=== PATIENT | female | born 1940 | race Caucasian/White ===

== ENCOUNTER 2016-11-20 14:15 | Inpatient (IN) | payer OTHER ==
[2016-11-20] MEDS ORDERED: TYLENOL PO PRN (16:10)
[2016-11-20] MEDS ORDERED: ZOFRAN IV PRN (16:10)
[2016-11-20] MEDS ORDERED: NS 1,000 ML IV SCH (16:15)
[2016-11-20] MEDS ORDERED: SODIUM CHLORIDE 0.9% INJ SCH (16:15)
[2016-11-20 16:48] LABS: BASO% 0.4 % (0.0-0.8); EOS# 0.02 X1000 (0.0-0.7); EOS% 0.2 % (0.0-10.0); HEMATOCRIT 43.5 % (37.0-47.0); HEMOGLOBIN 14.5 g/dL (12.0-16.0); IMM GRAN# 0.02 X1000 (0.0-0.04); IMM GRAN% 0.2 % (0.0-0.5); LYMPH# 0.77 X1000 (1.2-3.4); LYMPH% 7.7 % (20.5-51.1); MANUAL DIFF NEEDED? NO; MCH 29.7 PG (27-31); MCHC 33.3 g/dL (33-37); MPV 9.1 FL (7.4-10.4); NEUT% 88.5 % (42.2-75.2); PLT 188 X1000 (130-400); RBC 4.89 XMIL (4.2-5.4)
[2016-11-20 16:55] LABS: AGAP 10; ALBUMIN 4.2 g/dL (3.5-5.0); ALKALINE PHOSPHATASE 39 U/L (32-104); BUN 11 mg/dL (8-22); CALCIUM 8.2 mg/dL (8.8-10.2); CHLORIDE 100 mmol/L (98-107); COSMO 272; GOT 36 U/L (10-30); GPT 30 U/L (10-36); POTASSIUM 3.9 mmol/L (3.5-5.1); SODIUM 135 mmol/L (136-145); TCO2 25 mmol/L (25-35); TOTAL PROTEIN 6.8 g/dL (6.3-8.3)
[2016-11-20] MEDS ORDERED: PROTONIX IV SCH (17:00)
[2016-11-20 19:15] LABS: URINE CULTURE NEEDED? NO; URINE MICRO REVIEW NEEDED? NO; URINE SOURCE CATH
[2016-11-20 19:33] LABS: BILIRUBIN URINE NEGATIVE (NEGATIVE); BLOOD URINE NEGATIVE (NEGATIVE); COLOR YELLOW; GLUCOSE URINE NEGATIVE (NEGATIVE); LEUKOCYTES URINE NEGATIVE (NEGATIVE); NITRITE URINE NEGATIVE (NEGATIVE); PH URINE 6.5; PROTEIN URINE NEGATIVE (NEGATIVE); SP GRAVITY URINE 1.011; TURBIDITY URINE CLEAR (CLEAR); UROBILINOGEN URINE NORMAL (NORMAL)
[2016-11-20 19:37] LABS: UR EPITHELIAL CELLS <10 /HPF (<10); URINE BACTERIA NEGATIVE /HPF; URINE RBC <10 /HPF (<10); URINE WBC <10 /HPF (<10)
--- NOTE | 2016-11-20 19:44 | HISTORY AND PHYSICAL ---
PRIMARY CARE PROVIDER: Jairon Dixon M.D. CHIEF COMPLAINT: Difficulty waking and being extubated at outpatient surgery center. HISTORY OF PRESENT ILLNESS: Ms. Le Diallo is a 76-year-old, female with a past medical history of hypertension, glaucoma, hypothyroidism, mitral valve prolapse, GERD and depression, who apparently went in today with Dr. Abrams and had a left rotator cuff repair. There was difficulty with a long time to wake up from anesthesia and could not get extubated, so she was transferred to [facility] ICU bed 16. She is now extubated on an open face mask, tolerating well, no complaints of pain. She complains that she does feel cold but she is able to answer all questions appropriately. Vital signs are stable. We will keep overnight in ICU and likely can transfer tomorrow as she continues to be stable. PAST MEDICAL HISTORY: Hypertension for 3 years now, glaucoma, hypothyroidism, mitral valve prolapse, osteoporosis, osteoarthritis, GERD, depression, hepatitis A as a teenager. PAST SURGICAL HISTORY: She has a bladder sling/mesh, rectocele repair, hysterectomy, appendectomy, breast lumpectomy. SOCIAL HISTORY: Lives at home with her who has dementia. She denies alcohol, illicit drug use or tobacco. FAMILY HISTORY: Noncontributory. REVIEW OF SYSTEMS: Fourteen point review of systems were complete and all were negative except for those mentioned in above HPI. ALLERGIES: No known drug allergies. HOME MEDICATIONS: Estradiol 0.5 mg p.o. daily, latanoprost 2.5 mL/h twice daily, Norvasc 10 mg p.o. daily, Plaquenil 200 mg p.o. twice daily, Synthroid 75 mcg p.o. daily, timolol twice daily, daily vitamin with folic acid, vitamin D3, vitamin C and vitamin B 1 tab p.o. daily. LABORATORY DATA: Currently only a CBC is available to read. White blood cell 10,000, hemoglobin 14, hematocrit 43, platelet count 188,000. IMAGING: None. PHYSICAL EXAMINATION: VITAL SIGNS: Temperature 97.0 degrees, heart rate 82, respiratory rate 25 on open face mask, blood pressure 147/69, 97% saturation. GENERAL: Ms. Diallo is a 76-year-old, female who is drowsy but is able to answer questions appropriately. HEENT: Atraumatic, normocephalic. Pupils equal, round, reactive to light. Extraocular movements are intact. NECK: No JVD or carotid bruits noted. CARDIOVASCULAR: S1, S2. Regular rate and rhythm. No rubs, gallops, murmurs. PULMONARY: Clear to auscultation. Bilateral breath sounds. No accessory muscle use or work of breathing noted. Currently on open face mask with recent extubation about 30-40 minutes ago. Currently stable. GASTROINTESTINAL: Soft, nontender, hypoactive bowel sounds x4. NEUROLOGIC: Alert and oriented x4. Moves all extremities. She is slightly drowsy but easily awakened. EXTREMITIES: Left arm is in a sling giving recent left rotator cuff repair. She does have +2 dorsalis pedal and radial pulses. SKIN: Warm, dry, intact. ASSESSMENT AND PLAN: 1. Failed extubation during outpatient surgery due to slow to awaken. She is now extubated on open face mask. We will be able to wean down to nasal cannula without difficulty. O2 saturation stable. 2. Hypertension. Continue home medications. 3. Glaucoma. Continue home medications. 4. Hypothyroidism. Continue home medications. 5. Gastroesophageal reflux disease. Continue Protonix. 6. Deep venous thrombosis prophylaxis. Will do heparin 5000 units subcutaneous twice daily. Dictated by CHAD Lomeli for Tai Ashby MD
[2016-11-20] MEDS ORDERED: HEPARIN SUBQ SCH (21:00)
[2016-11-20] MEDS: MORPHINE IV PRN (21:05)
[2016-11-20] MEDS: HEPARIN SUBQ SCH (21:14)
[2016-11-21] MEDS: MORPHINE IV PRN ×2 (04:06→10:04)
[2016-11-21 07:11] LABS: MANUAL DIFF NEEDED? NO
[2016-11-21 07:24] LABS: BASO% 0.4 % (0.0-0.8); EOS# 0.01 X1000 (0.0-0.7); EOS% 0.1 % (0.0-10.0); HEMATOCRIT 39.3 % (37.0-47.0); HEMOGLOBIN 12.8 g/dL (12.0-16.0); IMM GRAN# 0.02 X1000 (0.0-0.04); IMM GRAN% 0.2 % (0.0-0.5); LYMPH# 1.66 X1000 (1.2-3.4); LYMPH% 16.9 % (20.5-51.1); MCH 29.3 PG (27-31); MCHC 32.6 g/dL (33-37); MCV 89.9 FL (81-99); MONO# 0.98 X1000 (0.11-0.59); MPV 9.5 FL (7.4-10.4); NEUT% 72.4 % (42.2-75.2); PLT 183 X1000 (130-400); RBC 4.37 XMIL (4.2-5.4)
[2016-11-21 07:31] LABS: AGAP 12; ALBUMIN 3.6 g/dL (3.5-5.0); ALKALINE PHOSPHATASE 29 U/L (32-104); BUN 9 mg/dL (8-22); CALCIUM 8.5 mg/dL (8.8-10.2); CHLORIDE 101 mmol/L (98-107); COSMO 274; GOT 34 U/L (10-30); GPT 26 U/L (10-36); POTASSIUM 3.7 mmol/L (3.5-5.1); SODIUM 138 mmol/L (136-145); TCO2 25 mmol/L (25-35); TOTAL BILIRUBIN 0.98 mg/dL (0.20-1.00)
[2016-11-21 07:47] VITALS: BP 121/62
[2016-11-21] MEDS: HEPARIN SUBQ SCH (08:19)
[2016-11-21] MEDS ORDERED: PERCOCET-5 PO PRN (11:06)
--- NOTE | 2016-11-21 12:15 | DISCHARGE SUMMARY ---
ADMISSION DATE: 11/20/2016 DISCHARGE DATE: 11/21/2016 ADDENDUM REPORT DISCHARGE INSTRUCTIONS: She is to take Percocet 5 mg tablets 1 to 2 p.o. q.4 hours. Follow up with Dr. Abrams in 2 weeks. She needs to start PT in 1 week and to call the office to get an appointment. She may change her dressing tomorrow to Band-Aids. She may shower with waterproof Band-Aids and no active motion of the left arm and to keep it in a sling. Dictated by CHAD Lomeli for Tai Ashby MD
[2016-11-21] MEDS ORDERED: TIMOLOL OP SCH (21:00)
[2016-11-21] MEDS ORDERED: PLAQUENIL PO SCH (21:00)
--- NOTE | 2016-11-22 06:51 | DISCHARGE SUMMARY ---
ADMISSION DATE: 11/20/2016 DISCHARGE DATE: 11/21/2016 ADMISSION DIAGNOSES: 1. Failed extubation during outpatient surgery due to slow awakening. 2. Hypertension. 3. Glaucoma. 4. Hypothyroidism. DISCHARGE DIAGNOSES: 1. Failed extubation during outpatient surgery due to slow awakening. She was immediately extubated after admission and is now fully awake. 2. Hypertension, stable. 3. Glaucoma, stable. 4. Hypothyroidism, stable. PROCEDURES AND FINDINGS: She was extubated. CONSULTATIONS: None. HOSPITAL COURSE: Ms. Le Diallo is a 76-year-old, female with a history of hypertension, glaucoma, hypothyroidism, mitral valve prolapse, GERD, who had a left rotator cuff repair by Dr. Abrams on 11/20/2016. She was difficult to awaken and was sent here for prolonged sedation with difficulty waking and for extubation. She was transferred to ICU. She was extubated to open face mask. She tolerated that well. She had no complaints of pain. She was able answer all questions appropriately. Vital signs have remained stable since admission. She is stable for discharge home. DISCHARGE LABORATORY DATA: White blood cells 9000, hemoglobin 12, hematocrit 39, platelet count 183,000. Sodium 138, potassium 3.7, BUN 9, creatinine 0.6, glucose 91, calcium 8.5. Total bilirubin 0.98, AST 34, ALT 26, protein 6. No imaging noted. DISCHARGE MEDICATIONS: Estradiol 0.5 mg p.o. daily, latanoprost 2.5 mL by eyes twice daily, Norvasc 10 mg p.o. daily, Plaquenil 200 mg p.o. twice daily, Synthroid 75 mcg p.o. daily, timolol 5 mL per eye twice daily, multivitamins daily, [facility] 5 mg p.r.n. DISCHARGE DIET: Regular. DISCHARGE ACTIVITY: Activity as tolerated. Left arm in sling. DISPOSITION: Home. DISCHARGE INSTRUCTIONS: Self care. Will follow up with Dr. Abrams in office anywhere from 2-4 weeks. Dictated by CHAD Lomeli for Tai Ashby MD
[2016-11-22] MEDS ORDERED: SYNTHROID PO SCH (07:00)
== END 2016-11-21 12:50 | disposition home or self-care (01) | DRG 950 ==
LOC: DIRADM 14:15 → ICU 15:07
PROVIDERS: ATTEND Internal Medicine
DX: Z48.89 Encounter for other specified surgical aftercare (principal); I34.1 Nonrheumatic mitral (valve) prolapse; I10 Essential (primary) hypertension; H40.9 Unspecified glaucoma; E03.9 Hypothyroidism, unspecified; K21.9 Gastro-esophageal reflux disease without esophagitis; F32.9 Major depressive disorder, single episode, unspecified; M81.0 Age-related osteoporosis without current pathological fracture; M19.90 Unspecified osteoarthritis, unspecified site; Z79.899 Other long term (current) drug therapy; Z79.890 Hormone replacement therapy
CPT/HCPCS: 80053; 81001; 85025; 94002; 94762; C9113; J1644; J2270; J7030; S0164